=== PATIENT | female | born 1945 | race Caucasian/White ===

== ENCOUNTER 2020-02-15 12:54 | Inpatient (IN) ==
[2020-02-15] MEDS ORDERED: Acetaminophen 325 MG TABLET PO PRN (16:01)
[2020-02-15] MEDS ORDERED: Naloxone 0.4 MG/ML INJ IVP PRN (16:01)
[2020-02-15] MEDS ORDERED: Ondansetron ODT 4 MG TAB.RAPDIS SL PRN (16:01)
[2020-02-15] MEDS ORDERED: Dextrose Gel 15 GM/37.5 ML TUBE PO PRN ×2 (16:28)
[2020-02-15] MEDS ORDERED: Nitroglycerin 0.4 MG TAB.SUBL SL PRN (16:28)
[2020-02-15] MEDS ORDERED: D5% in Water 1,000 ML IVC PRN (16:28)
[2020-02-15] MEDS ORDERED: *HR* Dextrose 50 % in Water (Vial) 50 ML VIAL IVP PRN (16:28)
[2020-02-15] MEDS: Insulin LISPRO 300 UNITS/3 ML VIAL SQ SCH ×2 (17:27→20:25)
[2020-02-15] MEDS: Budesonide/Formoterol 80/4.5 1 PUFF INH IH SCH (21:44)
[2020-02-15 22:47] LABS: Basophils # 0.1 K/mcL (0.0-0.2); Eosinophils # 0.4 K/mcL (0.0-0.6); Eosinophils % 5.9 %; Hematocrit 31.6 % (35.3-44.9); Hemoglobin 9.9 g/dL (11.5-15.4); Immature Granulocytes % 0.3 % (0-4); Lymphocytes # 2.6 K/mcL (0.6-4.6); Lymphocytes % 36.5 %; Mean Corpuscular HGB Conc 31.3 g/dL (31.6-35.5); Mean Corpuscular Volume 92.7 fL (83.0-100.0); Monocytes # 0.6 K/mcL (0.0-1.3); Monocytes % 8.6 %; Neutrophils # 3.4 K/mcL (1.6-8.9); Platelet Count 146 K/mcL (140-400); Red Blood Count 3.41 M/mcL (3.82-4.97); Red Cell Distribution Width 13.2 % (11.5-14.5); Segmented Neutrophils % 47.7 %; White Blood Count 7.1 K/mcL (4.3-11.1)
[2020-02-15 23:03] LABS: Albumin 3.3 g/dL (3.5-5.7); Albumin/Globulin Ratio 1.3 (1.1-2.2); Bilirubin,Total 0.3 mg/dL (0.3-1.0); Calcium 8.5 mg/dL (8.6-10.3); Globulin 2.6 g/dL (2.4-3.5); Potassium 3.8 mEq/L (3.5-5.1); Total Protein 5.9 g/dL (6.4-8.9); Troponin I 0.13 ng/mL (< 0.04)
[2020-02-16 05:52] LABS: Hemoglobin 10.1 g/dL (11.5-15.4); Mean Corpuscular HGB Conc 31.6 g/dL (31.6-35.5); Mean Corpuscular Hemoglobin 29.7 pg (28.0-33.3); Mean Corpuscular Volume 94.1 fL (83.0-100.0); Mean Platelet Volume 11.1 fL (9.4-12.4); Platelet Count 157 K/mcL (140-400); Red Cell Distribution Width 13.3 % (11.5-14.5); White Blood Count 7.4 K/mcL (4.3-11.1)
[2020-02-16 06:16] LABS: Magnesium 1.5 mg/dL (1.6-2.6); Potassium 4.1 mEq/L (3.5-5.1)
[2020-02-16] MEDS: Budesonide/Formoterol 80/4.5 1 PUFF INH IH SCH ×2 (07:46→22:01)
[2020-02-16 08:39] LABS: Hepatitis B Surface Antibody < 3.10 mIU/mL
[2020-02-16 08:50] LABS: Hepatitis B Surface Antigen Nonreactive (Nonreactive)
[2020-02-16] MEDS: Aspirin 81 MG TAB.CHEW PO SCH (09:10)
[2020-02-16] MEDS: Insulin LISPRO 300 UNITS/3 ML VIAL SQ SCH ×4 (09:11→20:37)
[2020-02-16] MEDS ORDERED: 0.9 % Sodium Chloride 250 ML IVC PRN (09:20)
[2020-02-16] MEDS ORDERED: 0.9 % Sodium Chloride 1,000 ML PRIME SCH (09:30)
[2020-02-16] MEDS ORDERED: Perflutren Lipid Microsphere 1.3 ML in 0.9 % Sodium Chloride 8.7 ML IVP PRN (11:20)
[2020-02-16] MEDS: *HR* Heparin 5,000 UNIT/ML VIAL SQ SCH ×2 (14:36→20:37)
[2020-02-16] MEDS: *HR* HYDROcodone/Acet 10/325 mg TABLET PO PRN (14:43)
[2020-02-17] MEDS: *HR* Heparin 5,000 UNIT/ML VIAL SQ SCH ×3 (05:43→20:47)
[2020-02-17] MEDS: Insulin LISPRO 300 UNITS/3 ML VIAL SQ SCH ×4 (07:15→19:36)
[2020-02-17] MEDS ORDERED: 0.9 % Sodium Chloride 250 ML IVC PRN (07:43)
[2020-02-17] MEDS: Budesonide/Formoterol 80/4.5 1 PUFF INH IH SCH ×2 (07:49→19:59)
[2020-02-17] MEDS ORDERED: Regadenoson 0.4 MG/5 ML SYRINGE IVP ONE (08:36)
[2020-02-17] MEDS: Aspirin 81 MG TAB.CHEW PO SCH (10:05)
[2020-02-17] MEDS: *HR* HYDROcodone/Acet 10/325 mg TABLET PO PRN ×2 (10:08→22:09)
[2020-02-17 11:56] LABS: Basophils # 0.1 K/mcL (0.0-0.2); Eosinophils # 0.3 K/mcL (0.0-0.6); Eosinophils % 3.7 %; Hematocrit 32.6 % (35.3-44.9); Hemoglobin 10.3 g/dL (11.5-15.4); Immature Granulocytes % 0.3 % (0-4); Lymphocytes # 2.2 K/mcL (0.6-4.6); Lymphocytes % 32.4 %; Mean Corpuscular HGB Conc 31.6 g/dL (31.6-35.5); Mean Corpuscular Hemoglobin 29.3 pg (28.0-33.3); Mean Corpuscular Volume 92.9 fL (83.0-100.0); Monocytes # 0.7 K/mcL (0.0-1.3); Monocytes % 9.7 %; Neutrophils # 3.6 K/mcL (1.6-8.9); Platelet Count 164 K/mcL (140-400); Red Blood Count 3.51 M/mcL (3.82-4.97); Red Cell Distribution Width 13.2 % (11.5-14.5); Segmented Neutrophils % 52.9 %; White Blood Count 6.8 K/mcL (4.3-11.1)
[2020-02-17 11:58] LABS: Calcium 8.7 mg/dL (8.6-10.3); Potassium 3.9 mEq/L (3.5-5.1)
[2020-02-18] MEDS: *HR* Heparin 5,000 UNIT/ML VIAL SQ SCH ×3 (05:32→19:55)
[2020-02-18] MEDS: Insulin LISPRO 300 UNITS/3 ML VIAL SQ SCH ×4 (07:39→19:55)
[2020-02-18] MEDS: Budesonide/Formoterol 80/4.5 1 PUFF INH IH SCH ×2 (08:28→20:45)
[2020-02-18 08:51] LABS: Calcium 8.6 mg/dL (8.6-10.3); Potassium 4.3 mEq/L (3.5-5.1)
[2020-02-18] MEDS: BuPROPion XL (24 HR) 150 MG TABLET PO SCH (09:22)
[2020-02-18] MEDS: FLUoxetine 20 MG CAPSULE PO SCH (09:22)
[2020-02-18] MEDS: Aspirin 81 MG TAB.CHEW PO SCH (09:22)
[2020-02-18] MEDS ORDERED: Heparin 1,000 UNITS/500 mL 500 ML ONE (12:59)
[2020-02-18] MEDS ORDERED: *HR* Heparin 5,000 UNIT/ML VIAL ONE (14:54)
[2020-02-18] MEDS: *HR* HYDROcodone/Acet 10/325 mg TABLET PO PRN (15:58)
[2020-02-19] MEDS: *HR* HYDROcodone/Acet 10/325 mg TABLET PO PRN ×3 (00:11→20:43)
[2020-02-19 04:26] LABS: Basophils # 0.1 K/mcL (0.0-0.2); Eosinophils # 0.3 K/mcL (0.0-0.6); Eosinophils % 4.3 %; Hematocrit 31.6 % (35.3-44.9); Immature Granulocytes % 0.2 % (0-4); Lymphocytes # 2.2 K/mcL (0.6-4.6); Lymphocytes % 34.7 %; Mean Corpuscular HGB Conc 31.6 g/dL (31.6-35.5); Mean Corpuscular Hemoglobin 29.5 pg (28.0-33.3); Mean Corpuscular Volume 93.2 fL (83.0-100.0); Mean Platelet Volume 10.8 fL (9.4-12.4); Monocytes # 0.7 K/mcL (0.0-1.3); Monocytes % 10.8 %; Neutrophils # 3.1 K/mcL (1.6-8.9); Platelet Count 165 K/mcL (140-400); Red Blood Count 3.39 M/mcL (3.82-4.97); Red Cell Distribution Width 13.2 % (11.5-14.5); White Blood Count 6.2 K/mcL (4.3-11.1)
[2020-02-19 04:49] LABS: Potassium 4.1 mEq/L (3.5-5.1)
[2020-02-19] MEDS: *HR* Heparin 5,000 UNIT/ML VIAL SQ SCH ×3 (05:13→20:38)
[2020-02-19] MEDS ORDERED: 0.9 % Sodium Chloride 250 ML IVC PRN (07:00)
[2020-02-19] MEDS: Insulin LISPRO 300 UNITS/3 ML VIAL SQ SCH ×4 (07:48→20:46)
[2020-02-19] MEDS: Aspirin 81 MG TAB.CHEW PO SCH (07:51)
[2020-02-19] MEDS: FLUoxetine 20 MG CAPSULE PO SCH (07:51)
[2020-02-19] MEDS: BuPROPion XL (24 HR) 150 MG TABLET PO SCH (07:51)
[2020-02-19] MEDS: Budesonide/Formoterol 80/4.5 1 PUFF INH IH SCH ×2 (11:00→20:26)
[2020-02-19] MEDS ORDERED: *HR* Heparin 10,000 UNIT/10 ML VIAL ONE (12:31)
[2020-02-19] MEDS ORDERED: Nitroglycerin 1,000 MCG/10 ML VIAL IV ONE (12:31)
[2020-02-19] MEDS ORDERED: 0.9 % Sodium Chloride 2,000 ML ONE (12:31)
[2020-02-19] MEDS ORDERED: Heparin 1,000 UNITS/500 mL 500 ML ONE (12:31)
[2020-02-19] MEDS ORDERED: ISOVUE-370 200 ML INFUS..BTL ONE (12:31)
[2020-02-19] MEDS ORDERED: *HR* FentaNYL (PF) 100 MCG/2 ML VIAL ONE (13:08)
[2020-02-19] MEDS ORDERED: *HR* Midazolam HCl 2 MG/2 ML VIAL ONE (13:08)
[2020-02-19] MEDS ORDERED: Ondansetron 4 MG/2 ML VIAL ONE (15:58)
[2020-02-19] MEDS ORDERED: Ondansetron 4 MG/2 ML VIAL IVP ONE (17:14)
[2020-02-20] MEDS: *HR* Heparin 5,000 UNIT/ML VIAL SQ SCH (07:36)
[2020-02-20] MEDS: FLUoxetine 20 MG CAPSULE PO SCH (07:42)
[2020-02-20] MEDS: Metoprolol XL (24 HR) Succ 25 MG TAB.ER.24H PO SCH (07:42)
[2020-02-20] MEDS: Aspirin 81 MG TAB.CHEW PO SCH (07:42)
[2020-02-20] MEDS: BuPROPion XL (24 HR) 150 MG TABLET PO SCH (07:42)
[2020-02-20] MEDS: Insulin LISPRO 300 UNITS/3 ML VIAL SQ SCH ×4 (07:44→20:51)
[2020-02-20] MEDS: Budesonide/Formoterol 80/4.5 1 PUFF INH IH SCH ×2 (08:26→20:39)
[2020-02-20 08:50] LABS: Basophils # 0.1 K/mcL (0.0-0.2); Basophils % 0.9 %; Eosinophils # 0.2 K/mcL (0.0-0.6); Eosinophils % 3.2 %; Hematocrit 33.5 % (35.3-44.9); Hemoglobin 10.4 g/dL (11.5-15.4); Immature Granulocytes % 0.4 % (0-4); Lymphocytes # 0.8 K/mcL (0.6-4.6); Lymphocytes % 13.5 %; Mean Corpuscular Hemoglobin 28.9 pg (28.0-33.3); Mean Corpuscular Volume 93.1 fL (83.0-100.0); Mean Platelet Volume 10.3 fL (9.4-12.4); Monocytes # 0.6 K/mcL (0.0-1.3); Platelet Count 154 K/mcL (140-400); Red Cell Distribution Width 13.2 % (11.5-14.5); White Blood Count 5.6 K/mcL (4.3-11.1)
[2020-02-20 09:06] LABS: Calcium 9.1 mg/dL (8.6-10.3); Potassium 4.3 mEq/L (3.5-5.1)
[2020-02-20 10:47] LABS: Bilirubin,Urine Negative (Negative); Blood,Urine Small (Negative); Clarity,Urine Clear (Clear); Color,Urine Light-Yellow (Yellow); Glucose,Urine (UA) 100 mg/dL (Normal); Ketones,Urine Negative (Negative); Leukocyte Esterase,Urine Negative (Negative); Nitrite,Urine Negative (Negative); PH,Urine 6.5 pH Units (5.0-8.0); Protein,Urine >=300 mg/dL (Neg-Trace); RBC,Urine 0-3 per hpf (0-3); Specific Gravity,Urine 1.027 (1.010-1.025); Squamous Epithelial Cell,Urine Few per hpf (None-Few); Urobilinogen,Urine Normal (Normal)
[2020-02-20] MEDS: Apixaban 5 MG TABLET PO SCH ×2 (11:23→20:21)
[2020-02-20] MEDS: *HR* HYDROcodone/Acet 10/325 mg TABLET PO PRN (20:25)
[2020-02-21 03:49] LABS: Hematocrit 30.6 % (35.3-44.9); Hemoglobin 9.7 g/dL (11.5-15.4); Mean Corpuscular HGB Conc 31.7 g/dL (31.6-35.5); Mean Corpuscular Hemoglobin 29.6 pg (28.0-33.3); Mean Corpuscular Volume 93.3 fL (83.0-100.0); Mean Platelet Volume 10.5 fL (9.4-12.4); Platelet Count 142 K/mcL (140-400); Red Blood Count 3.28 M/mcL (3.82-4.97); Red Cell Distribution Width 13.2 % (11.5-14.5); White Blood Count 5.4 K/mcL (4.3-11.1)
[2020-02-21 04:03] LABS: Calcium 8.6 mg/dL (8.6-10.3); Magnesium 1.8 mg/dL (1.6-2.6)
[2020-02-21] MEDS: Budesonide/Formoterol 80/4.5 1 PUFF INH IH SCH (08:06)
[2020-02-21] MEDS: Apixaban 5 MG TABLET PO SCH (08:53)
[2020-02-21] MEDS: BuPROPion XL (24 HR) 150 MG TABLET PO SCH (08:53)
[2020-02-21] MEDS: Metoprolol XL (24 HR) Succ 25 MG TAB.ER.24H PO SCH (08:53)
[2020-02-21] MEDS: FLUoxetine 20 MG CAPSULE PO SCH (08:53)
[2020-02-21] MEDS: Aspirin 81 MG TAB.CHEW PO SCH (08:53)
[2020-02-21] MEDS: Insulin LISPRO 300 UNITS/3 ML VIAL SQ SCH ×3 (08:54→17:20)
[2020-02-21] MEDS: *HR* HYDROcodone/Acet 10/325 mg TABLET PO PRN (09:02)
[2020-02-21 16:05] VITALS: BP 143/78
== END 2020-02-21 18:35 | disposition short-term general hospital (02) ==
LOC: 2ANU → SUATTDRO 02-16 14:00
PROVIDERS: ADMIT Internal Medicine; ATTEND Internal Medicine

== ENCOUNTER 2020-03-13 15:49 | Observation (INO) ==
[2020-03-13] MEDS ORDERED: Naloxone 0.4 MG/ML INJ IVP PRN (19:45)
[2020-03-13] MEDS ORDERED: Acetaminophen 325 MG TABLET PO PRN (19:45)
[2020-03-13] MEDS ORDERED: Ondansetron ODT 4 MG TAB.RAPDIS SL PRN (19:45)
[2020-03-13] MEDS ORDERED: D5% in Water 1,000 ML IVC PRN (19:51)
[2020-03-13] MEDS ORDERED: Dextrose Gel 15 GM/37.5 ML TUBE PO PRN ×2 (19:51)
[2020-03-13] MEDS ORDERED: *HR* Dextrose 50 % in Water (Vial) 50 ML VIAL IVP PRN (19:51)
[2020-03-13] MEDS: Insulin LISPRO 300 UNITS/3 ML VIAL SUBQ SCH ×2 (21:03)
[2020-03-14 03:23] LABS: Prothrombin Time 11.9 Seconds (9.4-12.1)
[2020-03-14 03:37] LABS: Albumin 3.7 g/dL (3.5-5.7); Albumin/Globulin Ratio 1.2 (1.1-2.2); Bilirubin,Total 0.8 mg/dL (0.3-1.0); Globulin 3.2 g/dL (2.4-3.5); Magnesium 1.7 mg/dL (1.6-2.6); Phosphorous 3.4 mg/dL (2.7-4.5); Potassium 3.7 mEq/L (3.5-5.1); Total Protein 6.9 g/dL (6.4-8.9)
[2020-03-14] MEDS ORDERED: 0.9 % Sodium Chloride 250 ML IVC PRN (07:25)
[2020-03-14] MEDS ORDERED: Benzonatate 100 MG CAPSULE PO PRN (07:30)
[2020-03-14] MEDS ORDERED: 0.9 % Sodium Chloride 1,000 ML PRIME SCH (07:30)
[2020-03-14] MEDS ORDERED: Ipratropium 1 PUFF INHALER IH PRN (07:30)
[2020-03-14] MEDS ORDERED: Nitroglycerin 0.4 MG TAB.SUBL SL PRN (07:32)
[2020-03-14] MEDS: Aspirin 81 MG TAB.CHEW PO SCH (07:58)
[2020-03-14 08:43] LABS: Basophils % 0.6 %; Eosinophils # 0.3 K/mcL (0.0-0.6); Eosinophils % 4.7 %; Hematocrit 32.2 % (35.3-44.9); Hemoglobin 10.2 g/dL (11.5-15.4); Immature Granulocytes % 0.4 % (0-4); Lymphocytes # 2.2 K/mcL (0.6-4.6); Lymphocytes % 41.5 %; Mean Corpuscular HGB Conc 31.7 g/dL (31.6-35.5); Mean Corpuscular Hemoglobin 29.7 pg (28.0-33.3); Mean Corpuscular Volume 93.9 fL (83.0-100.0); Mean Platelet Volume 10.4 fL (9.4-12.4); Monocytes # 0.4 K/mcL (0.0-1.3); Monocytes % 7.4 %; Neutrophils # 2.4 K/mcL (1.6-8.9); Platelet Count 135 K/mcL (140-400); Red Blood Count 3.43 M/mcL (3.82-4.97); Red Cell Distribution Width 13.9 % (11.5-14.5); Segmented Neutrophils % 45.4 %; White Blood Count 5.3 K/mcL (4.3-11.1)
[2020-03-14] MEDS ORDERED: Metoprolol XL (24 HR) Succ 25 MG TAB.ER.24H PO SCH ×3 (09:00→21:00)
[2020-03-14 09:02] LABS: C-Reactive Protein < 5 mg/L (Less than 10); Lactate Dehydrogenase 182 Units/L (140-271)
[2020-03-14 09:21] LABS: Ferritin 595 ng/mL (10-120)
[2020-03-14] MEDS: Insulin LISPRO 300 UNITS/3 ML VIAL SUBQ SCH ×4 (09:22→20:57)
[2020-03-14] MEDS ORDERED: calcitrioL 0.25 MCG CAPSULE PO SCH (19:15)
[2020-03-14] MEDS: Budesonide/Formoterol 160/4.5 1 PUFF INH IH SCH (20:56)
[2020-03-14] MEDS ORDERED: *HR* OxyCODONE Immed Rel 5 MG TABLET PO ONE (23:41)
[2020-03-15 06:09] LABS: Basophils % 0.5 %; Eosinophils # 0.1 K/mcL (0.0-0.6); Eosinophils % 3.3 %; Hematocrit 30.5 % (35.3-44.9); Hemoglobin 9.7 g/dL (11.5-15.4); Immature Granulocytes % 0.2 % (0-4); Lymphocytes # 1.9 K/mcL (0.6-4.6); Lymphocytes % 44.5 %; Mean Corpuscular HGB Conc 31.8 g/dL (31.6-35.5); Mean Corpuscular Hemoglobin 29.8 pg (28.0-33.3); Mean Corpuscular Volume 93.8 fL (83.0-100.0); Mean Platelet Volume 10.7 fL (9.4-12.4); Monocytes # 0.5 K/mcL (0.0-1.3); Monocytes % 10.7 %; Neutrophils # 1.8 K/mcL (1.6-8.9); Platelet Count 129 K/mcL (140-400); Red Blood Count 3.25 M/mcL (3.82-4.97); Red Cell Distribution Width 14.1 % (11.5-14.5); Segmented Neutrophils % 40.8 %; White Blood Count 4.3 K/mcL (4.3-11.1)
[2020-03-15 06:11] LABS: Albumin 3.5 g/dL (3.5-5.7); Albumin/Globulin Ratio 1.2 (1.1-2.2); Bilirubin,Total 0.8 mg/dL (0.3-1.0); Magnesium 1.8 mg/dL (1.6-2.6); Phosphorous 3.1 mg/dL (2.7-4.5); Potassium 3.8 mEq/L (3.5-5.1); Total Protein 6.5 g/dL (6.4-8.9)
[2020-03-15 06:24] LABS: Hepatitis B Surface Antibody < 3.10 mIU/mL
[2020-03-15 06:34] LABS: Hepatitis B Surface Antigen Nonreactive (Nonreactive)
[2020-03-15] MEDS: Insulin LISPRO 300 UNITS/3 ML VIAL SUBQ SCH ×2 (07:44→12:04)
[2020-03-15] MEDS: Aspirin 81 MG TAB.CHEW PO SCH (07:52)
[2020-03-15] MEDS ORDERED: Metoprolol XL (24 HR) Succ 25 MG TAB.ER.24H PO SCH (09:00)
[2020-03-15] MEDS ORDERED: allopurinoL 100 MG TABLET PO SCH (09:00)
[2020-03-15] MEDS ORDERED: BuPROPion XL (24 HR) 150 MG TABLET PO SCH (09:00)
[2020-03-15] MEDS ORDERED: Renal Vitamin 1 CAP CAPSULE PO SCH (09:00)
[2020-03-15] MEDS: Budesonide/Formoterol 160/4.5 1 PUFF INH IH SCH (10:04)
[2020-03-15 11:19] VITALS: BP 105/65
== END 2020-03-15 15:10 | disposition home health service (06) ==
LOC: 2NENU → SUATTDRO 17:56 → 2NENU 03-14 11:42
PROVIDERS: ADMIT Internal Medicine; ATTEND Internal Medicine

== ENCOUNTER 2020-12-13 16:02 | Inpatient (IN) ==
[2020-12-13 17:04] LABS: Bilirubin,Urine Negative (Negative); Blood,Urine Moderate (Negative); Clarity,Urine Clear (Clear); Color,Urine Yellow (Yellow); Glucose,Urine (UA) 100 mg/dL (Normal); Ketones,Urine Negative (Negative); Leukocyte Esterase,Urine Negative (Negative); Nitrite,Urine Negative (Negative); PH,Urine 7.5 pH Units (5.0-8.0); Protein,Urine 100 mg/dL (Neg-Trace); RBC,Urine 50-100 per hpf (0-3); Specific Gravity,Urine 1.017 (1.010-1.025); Urobilinogen,Urine Normal (Normal)
[2020-12-13 17:30] LABS: Amphetamine Screen,Urine Negative ng/mL (Cutoff=1000); Barbiturate Screen,Urine Negative ng/mL (Cutoff=200); Benzodiazepines Screen,Urine Negative ng/mL (Cutoff=200); Cannabinoid Screen,Urine Negative ng/mL (Cutoff = 50); Cocaine Screen,Urine Negative ng/mL (Cutoff= 300); Opiate Screen,Urine Positive ng/mL (Cutoff=300); Phencyclidine Screen,Urine Negative ng/mL (Cutoff=25)
[2020-12-13 17:41] LABS: Basophils # 0.1 K/mcL (0.0-0.2); Basophils % 0.5 %; Eosinophils # 0.1 K/mcL (0.0-0.6); Eosinophils % 1.1 %; Hematocrit 36.3 % (35.3-44.9); Hemoglobin 11.9 g/dL (11.5-15.4); Lymphocytes # 1.4 K/mcL (0.6-4.6); Lymphocytes % 10.5 %; Mean Corpuscular HGB Conc 32.8 g/dL (31.6-35.5); Mean Corpuscular Hemoglobin 31.8 pg (28.0-33.3); Mean Corpuscular Volume 97.1 fL (83.0-100.0); Mean Platelet Volume 10.5 fL (9.4-12.4); Monocytes # 0.8 K/mcL (0.0-1.3); Monocytes % 5.8 %; Neutrophils # 10.8 K/mcL (1.6-8.9); Nucleated Red Blood Cells 0.2 /100 WBC (0); Platelet Count 168 K/mcL (140-400); Red Blood Count 3.74 M/mcL (3.82-4.97); Red Cell Distribution Width 13.1 % (11.5-14.5); Segmented Neutrophils % 81.1 %; White Blood Count 13.3 K/mcL (4.3-11.1)
[2020-12-13 17:49] LABS: INR 1.4; Prothrombin Time 15.1 Seconds (9.4-12.1)
[2020-12-13 17:52] LABS: Influenza A PCR Negative (Negative); Influenza B PCR Negative (Negative); Resp. Syncytial Virus PCR Negative (Negative)
[2020-12-13] MEDS ORDERED: *HR* FentaNYL (PF) 100 MCG/2 ML VIAL IVP ONE (17:58)
[2020-12-13 18:04] LABS: Albumin 3.8 g/dL (3.5-5.7); Albumin/Globulin Ratio 1.4 (1.1-2.2); Bilirubin,Direct 0.2 mg/dL (0.0-0.2); Bilirubin,Indirect 0.5 mg/dL (0.0-1.0); Bilirubin,Total 0.7 mg/dL (0.3-1.0); Calcium 9.4 mg/dL (8.6-10.3); Globulin 2.8 g/dL (2.4-3.5); Potassium 4.1 mEq/L (3.5-5.1); Total Protein 6.6 g/dL (6.4-8.9); Troponin I 0.03 ng/mL (< 0.04)
[2020-12-13 18:22] LABS: SARS-CoV-2 by PCR (In House) Negative (Negative)
[2020-12-13] MEDS ORDERED: Naloxone 0.4 MG/ML INJ IVP PRN (21:30)
[2020-12-13] MEDS ORDERED: Ipratropium/Albuterol Neb 3 ML IH PRN (21:34)
[2020-12-13] MEDS ORDERED: Dextrose Gel 15 GM/37.5 ML TUBE PO PRN ×2 (22:13)
[2020-12-13] MEDS ORDERED: D5% in Water 1,000 ML IVC PRN (22:13)
[2020-12-13] MEDS ORDERED: *HR* Dextrose 50 % in Water (Syg) 50 ML SYRINGE IVP PRN (22:13)
[2020-12-13] MEDS: Insulin LISPRO 300 UNITS/3 ML VIAL SUBQ SCH ×2 (22:51→22:52)
[2020-12-14 02:15] LABS: Basophils # 0.1 K/mcL (0.0-0.2); Basophils % 0.8 %; Eosinophils # 0.1 K/mcL (0.0-0.6); Eosinophils % 1.1 %; Hematocrit 33.8 % (35.3-44.9); Immature Granulocytes % 0.4 % (0-4); Lymphocytes % 22.5 %; Mean Corpuscular HGB Conc 32.5 g/dL (31.6-35.5); Mean Corpuscular Hemoglobin 31.3 pg (28.0-33.3); Mean Platelet Volume 10.7 fL (9.4-12.4); Monocytes # 0.7 K/mcL (0.0-1.3); Monocytes % 8.1 %; Platelet Count 151 K/mcL (140-400); Red Blood Count 3.52 M/mcL (3.82-4.97); Red Cell Distribution Width 13.1 % (11.5-14.5); Segmented Neutrophils % 67.1 %; White Blood Count 8.9 K/mcL (4.3-11.1)
[2020-12-14] MEDS: *HR* HYDROcodone/Acet 5/325 mg TABLET PO PRN ×3 (02:20→19:51)
[2020-12-14 02:37] LABS: Calcium 9.1 mg/dL (8.6-10.3); Magnesium 1.8 mg/dL (1.6-2.6); Potassium 4.4 mEq/L (3.5-5.1)
[2020-12-14 02:51] LABS: Thyroid Stimulating Hormone 1.407 mcIU/mL (0.340-5.600)
[2020-12-14 03:00] LABS: Vitamin B12 743 pg/mL (250-1100); Vitamin D 25 Hydroxy 65 ng/mL (30-80)
[2020-12-14] MEDS ORDERED: Magnesium Sulfate 1 GM/102 ML PIGGYBACK IVPB ONE (03:05)
[2020-12-14] MEDS ORDERED: Magnesium Sulfate 0 GM/0 ML PIGGYBACK IVPB ONE (03:36)
[2020-12-14] MEDS: Insulin LISPRO 300 UNITS/3 ML VIAL SUBQ SCH ×4 (09:15→23:13)
[2020-12-14] MEDS ORDERED: 0.9 % Sodium Chloride 250 ML IVC PRN (10:07)
[2020-12-14] MEDS ORDERED: 0.9 % Sodium Chloride 1,000 ML PRIME SCH (10:15)
[2020-12-14] MEDS ORDERED: 0.9 % Sodium Chloride 1,000 ML ONE (10:25)
[2020-12-14 12:46] LABS: Hepatitis B Surface Antibody < 3.10 mIU/mL
[2020-12-14 12:56] LABS: Hepatitis B Surface Antigen Nonreactive (Nonreactive)
[2020-12-14] MEDS: Apixaban 2.5 MG TABLET PO SCH (19:51)
[2020-12-14 23:31] LABS: Bilirubin,Urine Moderate (Negative); Blood,Urine Large (Negative); Clarity,Urine Cloudy (Clear); Color,Urine Yellow (Yellow); Glucose,Urine (UA) Normal (Normal); Ketones,Urine 15 mg/dL (Negative); Leukocyte Esterase,Urine Small (Negative); Nitrite,Urine Negative (Negative); PH,Urine 5.5 pH Units (5.0-8.0); Protein,Urine >=300 mg/dL (Neg-Trace); Specific Gravity,Urine >= 1.030 (1.010-1.025); Urobilinogen,Urine Normal (Normal)
[2020-12-14 23:34] LABS: Bacteria,Urine Moderate per hpf (None-Few); RBC,Urine 0-3 per hpf (0-3); WBC,Urine 15-30 per hpf (0-3)
[2020-12-14 23:35] LABS: Squamous Epithelial Cell,Urine None Seen per hpf (None-Few)
[2020-12-15] MEDS: Melatonin 3 MG TABLET PO PRN (00:47)
[2020-12-15 05:36] LABS: Hematocrit 33.2 % (35.3-44.9); Hemoglobin 10.7 g/dL (11.5-15.4); Mean Corpuscular HGB Conc 32.2 g/dL (31.6-35.5); Mean Corpuscular Hemoglobin 30.7 pg (28.0-33.3); Mean Corpuscular Volume 95.4 fL (83.0-100.0); Mean Platelet Volume 10.8 fL (9.4-12.4); Platelet Count 162 K/mcL (140-400); Red Blood Count 3.48 M/mcL (3.82-4.97); Red Cell Distribution Width 13.4 % (11.5-14.5)
[2020-12-15 06:00] LABS: Calcium 9.4 mg/dL (8.6-10.3); Potassium 4.1 mEq/L (3.5-5.1)
[2020-12-15] MEDS: *HR* HYDROcodone/Acet 5/325 mg TABLET PO PRN ×3 (07:15→22:09)
[2020-12-15] MEDS: BuPROPion XL (24 HR) 150 MG TABLET PO SCH (07:15)
[2020-12-15] MEDS: Renal Vitamin 1 CAP CAPSULE PO SCH (07:15)
[2020-12-15] MEDS: Insulin LISPRO 300 UNITS/3 ML VIAL SUBQ SCH ×4 (07:16→21:49)
[2020-12-15] MEDS: Apixaban 2.5 MG TABLET PO SCH ×2 (07:16→21:49)
[2020-12-16 06:33] LABS: Hematocrit 34.5 % (35.3-44.9); Hemoglobin 11.1 g/dL (11.5-15.4); Mean Corpuscular HGB Conc 32.2 g/dL (31.6-35.5); Mean Corpuscular Hemoglobin 31.1 pg (28.0-33.3); Mean Corpuscular Volume 96.6 fL (83.0-100.0); Mean Platelet Volume 10.9 fL (9.4-12.4); Platelet Count 174 K/mcL (140-400); Red Blood Count 3.57 M/mcL (3.82-4.97); Red Cell Distribution Width 13.3 % (11.5-14.5)
[2020-12-16 06:49] LABS: Calcium 9.4 mg/dL (8.6-10.3)
[2020-12-16 06:53] LABS: % Iron Saturation 20 % (15-50); Iron 41 mcg/dL (50-170); Transferrin 144 mg/dL (203-362)
[2020-12-16 07:02] LABS: Ferritin 867 ng/mL (10-120)
[2020-12-16 07:38] LABS: Folate > 22.3 ng/mL (3.0-16.0); Vitamin B12 769 pg/mL (250-1100)
[2020-12-16] MEDS: BuPROPion XL (24 HR) 150 MG TABLET PO SCH (08:19)
[2020-12-16] MEDS: Renal Vitamin 1 CAP CAPSULE PO SCH (08:19)
[2020-12-16] MEDS: Insulin LISPRO 300 UNITS/3 ML VIAL SUBQ SCH ×4 (08:19→23:24)
[2020-12-16] MEDS: Apixaban 2.5 MG TABLET PO SCH ×2 (08:19→19:58)
[2020-12-16] MEDS: *HR* HYDROcodone/Acet 5/325 mg TABLET PO PRN ×2 (08:20→19:58)
[2020-12-16 08:51] LABS: Estimated Average Glucose 183 mg/dl
[2020-12-16] MEDS ORDERED: 0.9 % Sodium Chloride 250 ML IVC PRN (10:46)
[2020-12-16] MEDS ORDERED: Iron Sucrose Complex 400 MG in 0.9 % Sodium Chloride 250 ML IVPB ONE (14:01)
[2020-12-16] MEDS: Sennosides/Docusate Sodium TABLET PO SCH (19:58)
[2020-12-16] MEDS: Insulin DETEMIR 100 UNIT/ML X5UNITS SUBQ SCH (23:00)
[2020-12-17 03:58] LABS: Hematocrit 29.4 % (35.3-44.9); Hemoglobin 9.6 g/dL (11.5-15.4); Mean Corpuscular HGB Conc 32.7 g/dL (31.6-35.5); Mean Corpuscular Hemoglobin 31.3 pg (28.0-33.3); Mean Corpuscular Volume 95.8 fL (83.0-100.0); Mean Platelet Volume 10.8 fL (9.4-12.4); Platelet Count 172 K/mcL (140-400); Red Blood Count 3.07 M/mcL (3.82-4.97); Red Cell Distribution Width 13.4 % (11.5-14.5); White Blood Count 9.7 K/mcL (4.3-11.1)
[2020-12-17 04:02] LABS: Calcium 8.9 mg/dL (8.6-10.3); Magnesium 1.9 mg/dL (1.6-2.6); Phosphorous 5.1 mg/dL (2.7-4.5); Potassium 4.2 mEq/L (3.5-5.1)
[2020-12-17] MEDS ORDERED: 0.9 % Sodium Chloride 250 ML IVC PRN (08:36)
[2020-12-17] MEDS: Renal Vitamin 1 CAP CAPSULE PO SCH (08:48)
[2020-12-17] MEDS: BuPROPion XL (24 HR) 150 MG TABLET PO SCH (08:48)
[2020-12-17] MEDS: *HR* HYDROcodone/Acet 5/325 mg TABLET PO PRN (08:48)
[2020-12-17] MEDS: Sennosides/Docusate Sodium TABLET PO SCH ×2 (08:48→20:51)
[2020-12-17] MEDS: polyethylene glycoL 3350 17 GM POWD.PACK PO SCH (08:49)
[2020-12-17] MEDS: Apixaban 2.5 MG TABLET PO SCH ×2 (08:49→20:51)
[2020-12-17] MEDS: Insulin LISPRO 300 UNITS/3 ML VIAL SUBQ SCH ×4 (08:50→20:51)
[2020-12-17] MEDS: Ondansetron 4 MG/2 ML VIAL IVP PRN (10:10)
[2020-12-17 16:36] LABS: Hematocrit 29.7 % (35.3-44.9); Hemoglobin 9.7 g/dL (11.5-15.4)
[2020-12-17] MEDS: Insulin DETEMIR 100 UNIT/ML X5UNITS SUBQ SCH (20:51)
[2020-12-18 05:02] LABS: Hematocrit 29.8 % (35.3-44.9); Hemoglobin 9.5 g/dL (11.5-15.4); Mean Corpuscular HGB Conc 31.9 g/dL (31.6-35.5); Mean Corpuscular Hemoglobin 30.9 pg (28.0-33.3); Mean Corpuscular Volume 97.1 fL (83.0-100.0); Mean Platelet Volume 10.6 fL (9.4-12.4); Platelet Count 190 K/mcL (140-400); Red Blood Count 3.07 M/mcL (3.82-4.97); Red Cell Distribution Width 13.8 % (11.5-14.5)
[2020-12-18 05:27] LABS: Magnesium 1.9 mg/dL (1.6-2.6); Phosphorous 4.6 mg/dL (2.7-4.5); Potassium 4.6 mEq/L (3.5-5.1)
[2020-12-18] MEDS: polyethylene glycoL 3350 17 GM POWD.PACK PO SCH (08:16)
[2020-12-18] MEDS: Sennosides/Docusate Sodium TABLET PO SCH (08:16)
[2020-12-18] MEDS: Apixaban 2.5 MG TABLET PO SCH ×2 (08:55→20:14)
[2020-12-18] MEDS: Metoprolol XL (24 HR) Succ 25 MG TAB.ER.24H PO SCH (08:55)
[2020-12-18] MEDS: BuPROPion XL (24 HR) 150 MG TABLET PO SCH (08:55)
[2020-12-18] MEDS: Renal Vitamin 1 CAP CAPSULE PO SCH (08:55)
[2020-12-18] MEDS: Insulin LISPRO 300 UNITS/3 ML VIAL SUBQ SCH ×4 (08:56→23:24)
[2020-12-18] MEDS ORDERED: DilTIAZem CD (24hr) 120 MG CAP.ER.24H PO SCH (09:00)
[2020-12-18] MEDS: *HR* HYDROcodone/Acet 5/325 mg TABLET PO PRN (20:14)
[2020-12-18] MEDS: Melatonin 3 MG TABLET PO PRN (20:32)
[2020-12-18] MEDS: Insulin DETEMIR 100 UNIT/ML X5UNITS SUBQ SCH (23:24)
[2020-12-19 02:10] LABS: Hematocrit 28.3 % (35.3-44.9); Hemoglobin 9.2 g/dL (11.5-15.4); Mean Corpuscular HGB Conc 32.5 g/dL (31.6-35.5); Mean Corpuscular Hemoglobin 31.8 pg (28.0-33.3); Mean Corpuscular Volume 97.9 fL (83.0-100.0); Mean Platelet Volume 10.6 fL (9.4-12.4); Platelet Count 197 K/mcL (140-400); Red Blood Count 2.89 M/mcL (3.82-4.97); Red Cell Distribution Width 13.7 % (11.5-14.5); White Blood Count 9.6 K/mcL (4.3-11.1)
[2020-12-19 02:29] LABS: Calcium 8.8 mg/dL (8.6-10.3); Magnesium 1.9 mg/dL (1.6-2.6); Phosphorous 4.8 mg/dL (2.7-4.5); Potassium 4.3 mEq/L (3.5-5.1)
[2020-12-19] MEDS: Insulin LISPRO 300 UNITS/3 ML VIAL SUBQ SCH ×4 (07:36→22:53)
[2020-12-19] MEDS: polyethylene glycoL 3350 17 GM POWD.PACK PO SCH (07:36)
[2020-12-19] MEDS: BuPROPion XL (24 HR) 150 MG TABLET PO SCH (07:36)
[2020-12-19] MEDS: Renal Vitamin 1 CAP CAPSULE PO SCH (07:36)
[2020-12-19] MEDS: Apixaban 2.5 MG TABLET PO SCH ×2 (07:36→22:53)
[2020-12-19] MEDS: Metoprolol XL (24 HR) Succ 25 MG TAB.ER.24H PO SCH (07:36)
[2020-12-19] MEDS: *HR* HYDROcodone/Acet 5/325 mg TABLET PO PRN ×2 (07:40→14:39)
[2020-12-19] MEDS ORDERED: *HR* Heparin 10,000 UNIT/10 ML VIAL IV PRN (08:20)
[2020-12-19] MEDS ORDERED: 0.9 % Sodium Chloride 250 ML IVC PRN (08:20)
[2020-12-19] MEDS ORDERED: 0.9 % Sodium Chloride 1,000 ML PRIME SCH (08:30)
[2020-12-19] MEDS: Melatonin 3 MG TABLET PO PRN (22:53)
[2020-12-20 00:30] LABS: Bilirubin,Urine Small (Negative); Blood,Urine Large (Negative); Clarity,Urine Turbid (Clear); Color,Urine Pink (Yellow); Glucose,Urine (UA) Normal (Normal); Ketones,Urine Trace mg/dL (Negative); Leukocyte Esterase,Urine Large (Negative); Nitrite,Urine Negative (Negative); PH,Urine 5.5 pH Units (5.0-8.0); Protein,Urine >=300 mg/dL (Neg-Trace); Urobilinogen,Urine Normal (Normal)
[2020-12-20 00:34] LABS: WBC,Urine TNTC per hpf (0-3)
[2020-12-20 00:35] LABS: RBC,Urine 50-100 per hpf (0-3)
[2020-12-20] MEDS ORDERED: cefTRIAXone 1,000 MG in Water for inj. (sterile) 10 ML IVP SCH (01:30)
[2020-12-20 07:00] LABS: Hematocrit 31.2 % (35.3-44.9); Hemoglobin 10.1 g/dL (11.5-15.4); Mean Corpuscular HGB Conc 32.4 g/dL (31.6-35.5); Mean Corpuscular Hemoglobin 31.6 pg (28.0-33.3); Mean Corpuscular Volume 97.5 fL (83.0-100.0); Mean Platelet Volume 10.2 fL (9.4-12.4); Platelet Count 250 K/mcL (140-400); Red Cell Distribution Width 13.9 % (11.5-14.5)
[2020-12-20 07:17] LABS: Calcium 9.3 mg/dL (8.6-10.3); Phosphorous 4.8 mg/dL (2.7-4.5); Potassium 4.2 mEq/L (3.5-5.1)
[2020-12-20] MEDS: Metoprolol XL (24 HR) Succ 25 MG TAB.ER.24H PO SCH (08:17)
[2020-12-20] MEDS: *HR* HYDROcodone/Acet 5/325 mg TABLET PO PRN ×2 (08:17→14:34)
[2020-12-20] MEDS: Renal Vitamin 1 CAP CAPSULE PO SCH (08:18)
[2020-12-20] MEDS: BuPROPion XL (24 HR) 150 MG TABLET PO SCH (08:18)
[2020-12-20] MEDS: Apixaban 2.5 MG TABLET PO SCH ×3 (08:18→20:59)
[2020-12-20] MEDS: Insulin LISPRO 300 UNITS/3 ML VIAL SUBQ SCH ×4 (08:18→21:00)
[2020-12-20] MEDS: polyethylene glycoL 3350 17 GM POWD.PACK PO SCH (08:26)
[2020-12-20] MEDS: Sennosides/Docusate Sodium TABLET PO PRN (14:34)
[2020-12-20] MEDS: Acetaminophen 325 MG TABLET PO PRN (18:16)
[2020-12-20] MEDS: Insulin DETEMIR 100 UNIT/ML X5UNITS SUBQ SCH ×2 (21:07)
[2020-12-21 05:30] LABS: Hemoglobin 10.2 g/dL (11.5-15.4); Mean Corpuscular HGB Conc 31.9 g/dL (31.6-35.5); Mean Corpuscular Hemoglobin 30.8 pg (28.0-33.3); Mean Corpuscular Volume 96.7 fL (83.0-100.0); Mean Platelet Volume 10.1 fL (9.4-12.4); Platelet Count 279 K/mcL (140-400); Red Blood Count 3.31 M/mcL (3.82-4.97); Red Cell Distribution Width 13.9 % (11.5-14.5); White Blood Count 10.3 K/mcL (4.3-11.1)
[2020-12-21 05:57] LABS: Calcium 9.4 mg/dL (8.6-10.3); Magnesium 2.1 mg/dL (1.6-2.6); Phosphorous 6.2 mg/dL (2.7-4.5); Potassium 4.3 mEq/L (3.5-5.1)
[2020-12-21] MEDS: Insulin LISPRO 300 UNITS/3 ML VIAL SUBQ SCH ×4 (07:45→20:27)
[2020-12-21] MEDS: polyethylene glycoL 3350 17 GM POWD.PACK PO SCH (07:46)
[2020-12-21] MEDS ORDERED: 0.9 % Sodium Chloride 250 ML IVC PRN (08:39)
[2020-12-21] MEDS ORDERED: Heparin 1,000 UNITS/500 mL 500 ML ONE (09:40)
[2020-12-21] MEDS ORDERED: 0.9 % Sodium Chloride 500 ML ONE (09:40)
[2020-12-21] MEDS ORDERED: Isovue-300 50ML VIAL IVP ONE ×2 (10:14→10:41)
[2020-12-21] MEDS: Renal Vitamin 1 CAP CAPSULE PO SCH (10:58)
[2020-12-21] MEDS: *HR* HYDROcodone/Acet 5/325 mg TABLET PO PRN (10:58)
[2020-12-21] MEDS: BuPROPion XL (24 HR) 150 MG TABLET PO SCH (10:58)
[2020-12-21] MEDS: Apixaban 2.5 MG TABLET PO SCH ×2 (10:58→20:19)
[2020-12-21] MEDS: Metoprolol XL (24 HR) Succ 25 MG TAB.ER.24H PO SCH ×2 (10:58→11:27)
[2020-12-21] MEDS: Ondansetron 4 MG/2 ML VIAL IVP PRN (17:50)
[2020-12-21] MEDS ORDERED: *HR* Digoxin 0.5 MG/2 ML AMPUL IVP ONE (18:01)
[2020-12-21] MEDS: Insulin DETEMIR 100 UNIT/ML X5UNITS SUBQ SCH (20:27)
[2020-12-22 01:00] LABS: Hematocrit 32.7 % (35.3-44.9); Hemoglobin 10.8 g/dL (11.5-15.4); Mean Corpuscular Hemoglobin 32.1 pg (28.0-33.3); Mean Corpuscular Volume 97.3 fL (83.0-100.0); Mean Platelet Volume 9.9 fL (9.4-12.4); Platelet Count 294 K/mcL (140-400); Red Blood Count 3.36 M/mcL (3.82-4.97); Red Cell Distribution Width 14.1 % (11.5-14.5); White Blood Count 10.5 K/mcL (4.3-11.1)
[2020-12-22 01:24] LABS: Calcium 9.1 mg/dL (8.6-10.3); Magnesium 1.9 mg/dL (1.6-2.6); Phosphorous 3.9 mg/dL (2.7-4.5); Potassium 4.4 mEq/L (3.5-5.1)
[2020-12-22] MEDS: Acetaminophen 325 MG TABLET PO PRN (04:34)
[2020-12-22] MEDS: Apixaban 2.5 MG TABLET PO SCH (08:11)
[2020-12-22] MEDS: Renal Vitamin 1 CAP CAPSULE PO SCH (08:12)
[2020-12-22] MEDS: BuPROPion XL (24 HR) 150 MG TABLET PO SCH (08:12)
[2020-12-22] MEDS: Metoprolol XL (24 HR) Succ 25 MG TAB.ER.24H PO SCH (08:12)
[2020-12-22] MEDS: Insulin LISPRO 300 UNITS/3 ML VIAL SUBQ SCH ×3 (08:12→16:17)
[2020-12-22] MEDS: polyethylene glycoL 3350 17 GM POWD.PACK PO SCH (08:13)
[2020-12-22] MEDS: Sennosides/Docusate Sodium TABLET PO PRN (08:14)
[2020-12-22] MEDS: *HR* HYDROcodone/Acet 5/325 mg TABLET PO PRN (14:17)
[2020-12-22 14:42] LABS: Adenovirus Not Detected (Not Detect); Bordetella Pertussis Not Detected (Not Detect); Chlamydophila pneumoniae Not Detected (Not Detect); Coronavirus 229E Not Detected (Not Detect); Coronavirus HKU1 Not Detected (Not Detect); Coronavirus NL63 Not Detected (Not Detect); Coronavirus OC43 Not Detected (Not Detect); Human Metapneumovirus Not Detected (Not Detect); Human Rhinovirus/Enterovirus Not Detected (Not Detect); Influenza A Subtype 2009 H1 Not Detected (Not Detect); Influenza B Not Detected (Not Detect); Mycoplasma pneumoniae Not Detected (Not Detect); Parainfluenza Virus 1 Not Detected (Not Detect); Parainfluenza Virus 2 Not Detected (Not Detect); Parainfluenza Virus 3 Not Detected (Not Detect); Parainfluenza Virus 4 Not Detected (Not Detect); Respiratory Syncytial Virus Not Detected (Not Detect); SARS-CoV-2 Not Detected (Not Detect)
[2020-12-22 16:04] VITALS: BP 118/59; PULSE 80; TEMP 98.1; O2SAT 95
== END 2020-12-22 19:00 | DRG 535 ==
LOC: 2ANU 16:02 → EMEROOARM 16:02 → SUATTDRO 21:38 → 2ANU 22:09 → SUATTDRO 12-14 14:56
PROVIDERS: ADMIT Student in an Organized Health Care Education/Training Program; ATTEND Hospitalist